=== PATIENT | female | born 1930 | race Caucasian/White ===

== ENCOUNTER → 2021-07-04 | Outpatient (CLI) | payer MEDICARE, OTHER ==
--- NOTE | 2021-07-04 12:22 | RAD ---
XR BILAT FEET 3 VIEWS Clinical Indication: Reason: BILATERAL FOOT PAIN, NKI, VASCULAR ISSUES / Spl. Instructions: / Histor y: Comparison: None. Findings: Right: There are coarse calcifications of the soft tissues of the plantar foot and the distal posterior calf . There is a surgical clip of the posterior calf. There is pes planus. There is diffuse demineralizat ion. No acute fracture is seen. Joint spaces are relatively maintained. Left: Diffuse demineralization. Mild narrowing of the first and fifth MTP joints. There are coarse calcific ations of the proximal plantar foot and the distal posterior calf. There is dorsal soft tissue swelli ng overlying the metatarsals. No acute fracture is identified. IMPRESSION: 1. No acute fracture. 2. Right pes planus. 3. Coarse calcifications in the soft tissues. Electronically signed by: Aric Cortes MD (07/04/2021 12:20 PM) [id number]
== END ==
LOC: RAD 09:57
PROVIDERS: ATTEND Podiatrist Foot & Ankle Surgery
DX: M21.41 Flat foot [pes planus] (acquired), right foot (principal); M79.89 Other specified soft tissue disorders; M25.872 Other specified joint disorders, left ankle and foot; M25.871 Other specified joint disorders, right ankle and foot; I73.9 Peripheral vascular disease, unspecified
CPT/HCPCS: 73630-50

== ENCOUNTER → 2021-07-10 | Outpatient (CLI) | payer MEDICARE, OTHER ==
--- NOTE | 2021-07-10 10:03 | RAD ---
EXAM: Bilateral lower extremity arterial Doppler sonogram. HISTORY: Peripheral vascular disease. Pain. Stroke. Atherosclerosis. TECHNIQUE: Warren scale and color Doppler sonographic evaluation of the bilateral lower artery veins wi th spectral waveform analysis was performed. FINDINGS: Right lower extremity: There is atherosclerotic plaque throughout the visualized right lower extremit y arteries. There is an abnormal monophasic waveform with severely elevated peak systolic velocity of 555 cm/s within the right popliteal artery. There are normal peak systolic velocities and biphasic a nd triphasic waveforms within the right lower extremity arteries proximal to this level and within th e proximal posterior tibial artery, anterior tibial artery and dorsalis pedis artery. The right dista l posterior tibial artery and peroneal artery are not seen. Left lower extremity: There is atherosclerotic plaque throughout the visualized left lower extremity arteries. There is an elevated peak systolic velocity within the left common femoral artery, measurin g 295 cm/s. There are biphasic waveforms and normal peak systolic velocities throughout the remainder of the left lower extremity arteries. IMPRESSION: 1. Nonvisualization of the right distal posterior tibial and peroneal arteries. This may be due to oc clusion. 2. Severe stenosis with associated abnormal waveform within the right popliteal artery. 3. Severe stenosis within the left common femoral artery 4. Atherosclerotic plaque throughout the lower extremity arteries. 5. Note is made that reported lower extremity arterial stents are not clearly seen sonographically. Electronically signed by: Yanely Murguia MD (07/10/2021 10:00 AM) [id number]
== END ==
LOC: US 08:41
PROVIDERS: ATTEND Podiatrist Foot & Ankle Surgery
DX: I70.223 Atherosclerosis of native arteries of extremities with rest pain, bilateral legs (principal); I70.8 Atherosclerosis of other arteries; B35.1 Tinea unguium; M79.671 Pain in right foot; M79.672 Pain in left foot
CPT/HCPCS: 93925

== ENCOUNTER 2021-08-13 14:52 | Inpatient (IN) | payer MEDICARE, OTHER ==
[~2021-08-13] VITALS: Ht 152.4 cm; Wt 69.8 kg
[2021-08-13] MEDS ORDERED: DEXAMETHASONE SOD PHOS 10 MG/ML VIAL. IVP ONE (15:15)
[2021-08-13] MEDS ORDERED: IPRATRPIUM/ALBUTEROL 0.5/2.5MG 3 ML NEBU. NEB ONE (15:15)
--- NOTE | 2021-08-13 15:19 | PHYS DOC ---
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), Depression, Hypertension, Hepatitis (See) Additional Past Medical Histor: Chronic hypotension, MS, mild cognitive impairment Past Medical History Limited secondary to patient's baseline mentation/altered mental status Past Surgical History: Coronary Bypass Surgery Additional Past Surgical Histo: Prosthetic heart valve Past Surgical History Limited secondary to patient's baseline mentation/altered mental status Smoking: Non-smoker Alcohol Use: None Drug Use: None Social History Limited secondary to patient's baseline mentation/altered mental status General Adult EDM: Chief Complaint: SHORTNESS OF BREATH HPI: HPI: 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 Pt was brought from [place] for increased SOB and confusion. Pt states she is not in any pain, does not feel ill, and is breathing at her baseline. Patient does have some baseline cognitive decline. Nursing rental representative reports over the past few days her mentation has decreased from baseline. Patient also has had some increased shortness of breath and has been requiring to wear her oxygen more often. Patient typically only wears 1 to 2 L via nasal cannula at night if needed. There is concern that patient may have a urinary tract infection as that happens frequently with this patient. History of present illness limited secondary to altered mental status/baseline mentation. Review of Systems: Review of Systems: Constitutional: Denies fever Respiratory: Reports cough and shortness of breath Cardiovascular: Denies chest pain GI: Denies abdominal pain, nausea, or vomiting Integument: Denies rash Neurologic: Denies headache; reports increased confusion Review of systems limited secondary to altered mental status/baseline cognitive impairment Current Medications: Current Meds: Current Medications Medications (Trade) Dose Ordered Sig/Azeem Start Time Stop Time Status Last Admin Dose Admin Albuterol/ Ipratropium (Duoneb) 3 ml 1X ONCE 08/13/21 15:15 08/13/21 15:16 UNV Dexamethasone Sodium Phosphate (Decadron) 10 mg 1X ONCE 08/13/21 15:15 08/13/21 15:16 UNV Allergies: Allergies: Allergies Coded Allergies Type Severity Reaction Last Updated Verified Penicillins Allergy Unknown 08/13/21 Yes captopril Allergy Unknown 08/13/21 Yes propranolol Allergy Unknown 08/13/21 Yes solifenacin Allergy Unknown 08/13/21 Yes Physical Exam: PE: Constitutional: Elderly, no acute distress, non-toxic appearance HENT: Normocephalic, atraumatic Eyes: PERRL, EOMI, conjunctiva normal, no discharge, no nystagmus Neck: Normal range of motion, supple Lungs & Thorax: No respiratory distress,increased work of breathing, tachypneic, rales noted at bases Cardiovascular: RRR Abdomen: Soft, no tenderness Skin: Warm, dry, no erythema, no rash Extremities: No tenderness, ROM intact, 2+ BLE edema Neurologic: Alert and oriented X name and place, LUE/LLE flaccidity from previous stroke Psychologic: Affect normal, judgment abnormal EKG: EKG: @1606 sinus rhythm at 87bpm occasional PVC No STEMI Slight ST depression I and aVL T wave inversions noted to I, aVL, and V4-V6 QRS 134ms QT/QTc 418/504ms @1801 NSR at 92bpm, NO ST elevation, t wave inversions I, aVL, V4-V6, Q wave in III, QRS 128ms, QT/QTc 398/498ms Radiology/Procedures: Radiology/Procedures: PROCEDURE: CHEST AP ONLY XR CHEST 1V History: Reason: dyspnea / Spl. Instructions: / History: Comparison: None. Findings: Diffuse interstitial thickening. Small bilateral pleural effusions. Enlarged cardiac size. No pneumothorax. Prior median sternotomy. Atheromatous plaque within the aorta. Impression: 1. Mild diffuse interstitial thickening, may represent pulmonary edema. 2. Small bilateral pleural effusions, right greater than left. Electronically signed by: Nelson Pacheco DO (08/13/2021 3:52 PM) [facility] PROCED[facility]: CT HEAD WO CONTRAST CT HEAD/BRAIN WO History: Altered mental status. Comparison: MRI brain 11/06/2020 Technique: Noncontrast CT imaging was performed of the head. Findings: No intracranial hemorrhage. No mass effect. No hydrocephalus. No evidence of acute territorial infarction. Moderate diffuse prominence of the ventricles and sulci consistent with involutional change. Patchy hypointensity of the periventricular and deep white matter consistent with chronic microvascular ischemic change. Bilateral lens replacements. The orbits are otherwise unremarkable. Imaged paranasal sinuses and mastoid air cells are clear. The scalp and calvarium are unremarkable. Impression: 1. No acute intracranial abnormality. Senescent changes of the brain. ----- Exposure: One or more of the following individualized dose reduction techniques were utilized for this examination: 1. Automated exposure control 2. Adjustment of the mA and/or kV according to patient size 3. Use of iterative reconstruction technique. Electronically signed by: Nahun Waller MD (08/13/2021 3:38 PM) [facility] Heart Score: C/O Chest Pain: N/A Course & Med Decision Making: Course & Med Decision Making Pertinent Labs and Imaging studies reviewed. (See chart for details) Pt is an 89 yo F who presents for increased SOB and confusion over the past few days. Patient has baseline cognitive impairment. Patient also has extensive cardiac history. EKG with some ST depression without signs of elevation. Chest x-ray with signs of increased vascular congestion. CT head without acute process. Labs obtained and posted to chart. WBC and lactic acid within normal limits. BNP greater than 5000. Initial troponin within normal limits. Lasix and aspirin provided. UA with positive nitrites. Rocephin initiated. Patient does have a history of chronic hypotension for which she is on midodrine. Midodrine therefore provided. Patient requiring admission for further evaluation and treatment. Discussed with Dr. De Luna (hospitalist) who is in agreement with admission. Discussed findings and plan with patient and Mother house rental representative, who acknowledge understanding and agreement. Jose Disclaimer: Jose Disclaimer: This electronic medical record was generated, in whole or in part, using a voice recognition dictation system. Departure Departure: Impression: Primary Impression: Acute exacerbation of CHF (congestive heart failure) Qualified Codes: I50.9 - Heart failure, unspecified Additional Impressions: Altered mental status Qualified Codes: R41.82 - Altered mental status, unspecified Urinary tract infection Qualified Codes: N30.00 - Acute cystitis without hematuria Disposition: ADMITTED INPATIENT Admitting Physician: Jean De Luna Condition: STABLE Referrals: HEATHER MANUEL DPM (PCP) BERT TORRES DO Aug 13, 2021 15:19
[2021-08-13] MEDS ORDERED: ONDANSETRON PF 4 MG/2 ML VIAL. IVP ONE (15:30)
--- NOTE | 2021-08-13 15:40 | RAD ---
CT HEAD/BRAIN WO History: Altered mental status. Comparison: MRI brain 11/06/2020 Technique: Noncontrast CT imaging was performed of the head. Findings: No intracranial hemorrhage. No mass effect. No hydrocephalus. No evidence of acute territorial infar ction. Moderate diffuse prominence of the ventricles and sulci consistent with involutional change. P atchy hypointensity of the periventricular and deep white matter consistent with chronic microvascula r ischemic change. Bilateral lens replacements. The orbits are otherwise unremarkable. Imaged paranasal sinuses and mast oid air cells are clear. The scalp and calvarium are unremarkable. Impression: 1. No acute intracranial abnormality. Senescent changes of the brain. ----- Exposure: One or more of the following individualized dose reduction techniques were utilized for thi s examination: 1. Automated exposure control 2. Adjustment of the mA and/or kV according to patient size 3. Use of iterative reconstruction technique. Electronically signed by: Nahun Waller MD (08/13/2021 3:38 PM) [facility]
--- NOTE | 2021-08-13 15:54 | RAD ---
XR CHEST 1V History: Reason: dyspnea / Spl. Instructions: / History: Comparison: None. Findings: Diffuse interstitial thickening. Small bilateral pleural effusions. Enlarged cardiac size. No pneumot horax. Prior median sternotomy. Atheromatous plaque within the aorta. Impression: 1. Mild diffuse interstitial thickening, may represent pulmonary edema. 2. Small bilateral pleural effusions, right greater than left. Electronically signed by: Nelson Pacheco DO (08/13/2021 3:52 PM) [facility]
[2021-08-13 16:15] LABS: BASO # 0.1 x10^3/uL (0.0-0.2); BASO % 1 % (0-3); EOS % 0 % (0-3); HEMOGLOBIN 9.9 g/dL (12.0-15.5); LYMPH # 0.7 x10^3/uL (1.0-4.8); LYMPH % 6 % (24-48); MEAN CORPUSCULAR HEMOGLOBIN 23 pg (25-35); MEAN CORPUSCULAR HGB CONC 31 g/dL (31-37); MEAN CORPUSCULAR VOLUME 75 fL (79-100); MONO # 1.6 x10^3/uL (0.0-1.1); MONO % 15 % (0-9); NEUT # 8.1 x10^3uL (1.8-7.7); NEUT % 78 % (31-73); PLATELET COUNT 110 x10^3/uL (140-400); RED BLOOD COUNT 4.29 x10^6/uL (3.50-5.40); RED CELL DISTRIBUTION WIDTH 18.5 % (11.5-14.5); WHITE BLOOD COUNT 10.4 x10^3/uL (4.0-11.0)
[2021-08-13 16:26] LABS: CALCIUM 9.3 mg/dL (8.5-10.1); CREATININE 0.7 mg/dL (0.6-1.0); POTASSIUM 3.9 mmol/L (3.5-5.1)
[2021-08-13 16:42] LABS: INFLUENZA A PATIENT NEGATIVE (NEGATIVE); INFLUENZA B PATIENT NEGATIVE (NEGATIVE)
[2021-08-13 16:43] LABS: ALBUMIN 3.5 g/dL (3.4-5.0); ALBUMIN/GLOBULIN RATIO 1.3 (1.0-1.7); MAGNESIUM 1.7 mg/dL (1.8-2.4); TOTAL BILIRUBIN 0.7 mg/dL (0.2-1.0); TOTAL PROTEIN 6.3 g/dL (6.4-8.2)
[2021-08-13 17:32] LABS: BACTERIA,URINE FEW /HPF (0-FEW); CLARITY,URINE CLEAR; COLOR,URINE AMBER; GLUCOSE,URINE NEG (NEG); NITRITE,URINE POS (NEG); SQUAMOUS EPITHELIAL CELL,UR FEW /LPF; UROBILINOGEN,URINE 0.2 mg/dL (0.2 mg/dL)
[2021-08-13] MEDS ORDERED: MIDODRINE 2.5 MG TABLET PO ONE (18:00)
[2021-08-13] MEDS ORDERED: ASPIRIN ENTERIC COATED 325 MG TABLET.DR. PO ONE (18:00)
[2021-08-13] MEDS ORDERED: FUROSEMIDE 40 MG/4 ML VIAL IVP ONE (18:00)
[2021-08-13] MEDS ORDERED: IV NORMAL SALINE 50ML 50 ML ONE (18:02)
[2021-08-13] MEDS ORDERED: cefTRIAXone SODIUM 1 GM VIAL ONE (18:02)
[2021-08-13] MEDS ORDERED: ONDANSETRON PF 4 MG/2 ML VIAL. IVP PRN (18:15)
[2021-08-13 20:30] VITALS: BP 90/74
[2021-08-13] MEDS ORDERED: MAGN400O7 PO (22:38)
[2021-08-13] MEDS ORDERED: METO-239 PO (22:38)
[2021-08-13] MEDS ORDERED: CALC300T5 PO (22:38)
[2021-08-13] MEDS ORDERED: SENN1TAB99 PO (22:38)
[2021-08-13] MEDS ORDERED: ESCITALOPRAM OXA5 MG PO (22:38)
[2021-08-13] MEDS ORDERED: MIDO2.5T PO (22:38)
[2021-08-13] MEDS ORDERED: ASPI-630 PO (22:38)
[2021-08-13] MEDS ORDERED: ATOR40TA59 PO (22:38)
[2021-08-13] MEDS ORDERED: NITR0.4T22 SL (22:38)
[2021-08-13] MEDS ORDERED: RANO500T2 PO (22:38)
[2021-08-13] MEDS ORDERED: ACET325T21 PO (22:38)
[2021-08-13] MEDS ORDERED: CLOP75TA PO (22:38)
--- NOTE | 2021-08-13 23:01 | NUR ---
PT ADMITTED TO 124 VIA EMS ACCOMPANIED BY ER STAFF. PT AOX2 W/ CONFUSION. VS OBTAINED. PT IS NOW RESTING COMFORTABLY W/ CALL LIGHT IN REACH.
[2021-08-13 23:15] VITALS: BP 93/69
--- NOTE | 2021-08-14 00:31 | EKG ---
[address] [address] Test Date: 2021-08-13 Test Time: 18:01:56 Pat Name: MIRELLA SCHNEIDER Department: Room: 124 A Gender: F Weekend Anchor: : 1930 Requested By: BERT TORRES Order Number: [id number] Reading MD: Dandy Brasher Measurements Intervals [place] Rate: 92 P: 0 [place]: 114 QRS: -10 QRSD: 128 T: 182 QT: 398 QTc: 498 Interpretive Statements SINUS RHYTHM VENTRICULAR PREMATURE COMPLEX(ES) LEFTWARD AXIS LEFT BUNDLE BRANCH BLOCK ABNORMAL ECG RI6.02 No previous ECG available for comparison Electronically Signed On 08-15-2021 18:17:04 CDT by Dandy Barsher
--- NOTE | 2021-08-14 00:32 | EKG ---
[address] [address] Test Date: 2021-08-13 Test Time: 16:06:23 Pat Name: MIRELLA SCHNEIDER Department: Room: 124 A Gender: F Sleever: : 1930 Requested By: BERT TORRES Order Number: [id number] Reading MD: Dandy Brasher Measurements Intervals [place] Rate: 87 P: 21 [place]: 114 QRS: 6 QRSD: 134 T: 196 QT: 418 QTc: 504 Interpretive Statements SINUS RHYTHM VENTRICULAR PREMATURE COMPLEX(ES) ATRIAL PREMATURE COMPLEX(ES) QRS(T) CONTOUR ABNORMALITY CONSISTENT WITH INFERIOR INFARCT AGE UNDETERMINED Electronically Signed On 08-15-2021 18:18:12 CDT by Dandy Brasher
[2021-08-14 06:02] VITALS: BP 89/65
[2021-08-14] MEDS ORDERED: NITROGLYCERIN SUBLINGUAL 0.4 MG BOTTLE OF 25. SL PRN (10:00)
[2021-08-14] MEDS ORDERED: MAGNESIUM HYDROXIDE 2,400 MG/30 ML ORAL.SUSP. PO PRN (10:00)
[2021-08-14] MEDS ORDERED: CALCIUM CARBONATE 500 MG TAB.CHEW PO PRN (10:30)
[2021-08-14] MEDS: SENNOSIDES/DOCUSATE 8.6/50MG TABLET. PO SCH (10:30)
--- NOTE | 2021-08-14 10:36 | HP ---
DATE OF SERVICE: 08/14/2021 ADMIT DATE: 08/13/2021 ATTENDING PHYSICIAN: Dr. De Luna. CHIEF COMPLAINT: Confusion and shortness of breath. 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 She presented to the ED with increasing shortness of breath and confusion. Workup there demonstrated congestive heart failure with vascular congestion and small bilateral pleural effusions. She also had evidence of a UTI. Cultures are pending. She was given supplemental oxygen, Lasix and started on antibiotics. She is admitted to the inpatient service. She is a DNR per advanced directive. She has underlying dementia. Her history is reviewed from the chart. ALLERGIES: SHE HAS ALLERGIES TO PENICILLIN, CAPTOPRIL, PROPRANOLOL, and SOLIFENACIN, exact reactions unclear. PAST MEDICAL HISTORY: Includes angina pectoris; arteriosclerotic heart disease; hypertension; wedge compression with compression fracture; multiple sclerosis; pain in the knee; previous bypass and graft of the heart; presence of prosthetic heart valve, exact type is unclear; hyperlipidemia; chronic viral hepatitis; thrombocytopenia; chronic anticoagulation; lumbar spinal stenosis; constipation; hemiplegia; old stroke; nonrheumatic mitral valve insufficiency; cardiomyopathy and cognitive disorder. CURRENT MEDICATIONS: Reviewed. She was on scheduled aspirin, Lipitor, Plavix, Lexapro, midodrine, Ranexa, and senna. SOCIAL HISTORY: She is a nonsmoker and nondrinker. FAMILY HISTORY: Unobtainable. REVIEW OF SYSTEMS: Unobtainable. PHYSICAL EXAMINATION: GENERAL: When I saw her, this is a pleasant, confused, elderly female. VITAL SIGNS: Her initial vital signs showed a blood pressure 90/74, pulse is 90 and regular. She was afebrile. Oxygen saturation 97% on room air. HEENT: Head is without trauma. Pupils are reactive. Sclerae nonicteric. Oropharynx clear. NECK: Supple. No bruits. LUNGS: Shallow respirations with crackles at the bases. CARDIOVASCULAR: Showed distant heart tones. Normal S1, S2. Soft grade II systolic murmur at the left sternal border. Peripheral pulses are palpable and full. ABDOMEN: Soft. EXTREMITIES: Without edema. NEUROLOGIC: Function focally intact, bit confused. PERTINENT LABORATORIES AND X-RAY STUDIES: Chest x-ray on admission showed vascular congestion and small bilateral pleural effusions. Cultures of urine have been sent and are pending. CBC and chemistry panel have been drawn. Her hemoglobin is 9.9 g/dL, white count 10,400. Cardiac enzymes negative for coronary ischemia. Electrolytes within normal range. Creatinine 0.7 mg%. Nonfasting blood sugar 122 mg/dL. BNP was 5000. ASSESSMENT: 1. 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 2. Urinary tract infections. 3. Altered mentation due to urinary tract infection. 4. Coronary artery disease. 5. Valvular heart disease. 6. Generalized debilitation. 7. Dementia. PLAN: 1. Admit to the inpatient unit. 2. Diuresis. 3. Serial chemistries. 4. Antibiotics as ordered. 5. Await urine cultures. 6. Home meds continued. 7. She is a DNR per advanced directive. DIGNA/GUY DR: DIGNA/bernie TID: [id number]
[2021-08-14 10:50] VITALS: BP 137/58
[2021-08-14] MEDS: ASPIRIN CHEWABLE 81 MG TABLET. PO SCH (11:15)
[2021-08-14] MEDS: CLOPIDOGREL BISULFATE 75 MG TABLET PO SCH (11:16)
[2021-08-14] MEDS: MIDODRINE 2.5 MG TABLET PO SCH ×2 (14:19→20:45)
[2021-08-14 15:00] VITALS: BP 71/65
[2021-08-14] MEDS ORDERED: ACETAMINOPHEN 325 MG TABLET PO ONE (18:15)
[2021-08-14 20:25] VITALS: BP 60/49
[2021-08-14] MEDS: RANOLAZINE 500 MG TAB.ER.12H PO SCH (20:46)
[2021-08-14] MEDS: ATORVASTATIN CALCIUM 20 MG TABLET PO SCH (20:46)
[2021-08-14 23:58] VITALS: BP 121/79
[2021-08-15 05:53] VITALS: BP 75/57
[2021-08-15 07:25] LABS: BASO % 0 % (0-3); EOS % 0 % (0-3); HEMATOCRIT 28.9 % (36.0-47.0); HEMOGLOBIN 9.1 g/dL (12.0-15.5); LYMPH # 0.8 x10^3/uL (1.0-4.8); LYMPH % 9 % (24-48); MEAN CORPUSCULAR HEMOGLOBIN 23 pg (25-35); MEAN CORPUSCULAR HGB CONC 32 g/dL (31-37); MEAN CORPUSCULAR VOLUME 74 fL (79-100); MONO # 1.1 x10^3/uL (0.0-1.1); MONO % 12 % (0-9); NEUT # 7.3 x10^3uL (1.8-7.7); NEUT % 79 % (31-73); PLATELET COUNT 140 x10^3/uL (140-400); RED BLOOD COUNT 3.91 x10^6/uL (3.50-5.40); WHITE BLOOD COUNT 9.3 x10^3/uL (4.0-11.0)
[2021-08-15 07:34] LABS: CALCIUM 8.9 mg/dL (8.5-10.1); CREATININE 0.7 mg/dL (0.6-1.0); POTASSIUM 3.8 mmol/L (3.5-5.1)
[2021-08-15 07:36] VITALS: BP 126/66
[2021-08-15] MEDS: MIDODRINE 2.5 MG TABLET PO SCH ×3 (07:43→20:27)
[2021-08-15] MEDS: CITALOPRAM 10 MG TABLET. PO SCH (07:44)
[2021-08-15] MEDS: RANOLAZINE 500 MG TAB.ER.12H PO SCH ×2 (07:44→20:27)
[2021-08-15] MEDS: CLOPIDOGREL BISULFATE 75 MG TABLET PO SCH (07:44)
[2021-08-15] MEDS: ASPIRIN CHEWABLE 81 MG TABLET. PO SCH (07:44)
[2021-08-15] MEDS: SENNOSIDES/DOCUSATE 8.6/50MG TABLET. PO SCH (07:46)
--- NOTE | 2021-08-15 08:52 | PDOC2 ---
UNIQUE HARVEY EFREN 08/15/21 0852: CARDIAC CONSULT DATE OF CONSULT DOS: DATE: 08/15/21 TIME: 08:46 REASON FOR CONSULT Reason for Consult CHF REFERRING PHYSICIAN Referring Physician Dr. Galvan SOURCE Source: Chart review, Patient HPI History of Present Illness This is an 89 yo female who presented secondary to shortness of breath and altered mental status. Has been short of breath for the last several days. Has progressively worsened. Facility staff also noticed decrease in mentations for the last couple of days. UA notable for UTI. CXY with evidence of CHF. Patient reports improvement in breathing following IV diuresis. She denies any dizziness, diaphoresis, palpitations, or nausea/vomiting. Report he "legs don't want to work" when the weather changes. Does have extensive cardiac history. 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 PAST MEDICAL HISTORY Cardiovascular: CAD, HTN, hyperipidemia, valve insufficiency CENTRAL NERVOUS SYSTEM: CVA, Dementia GI: GERD Psych: Anxiety, Depression Musculoskeletal: Osteoarthritis Renal/: Other (retention ) PAST SURGICAL HISTORY Past Surgical History: Other (bioprosthetic AVR) FAMILY HISTORY Family History: Family History Unknown SOCIAL HISTORY Smoke: No ALCOHOL: none Drugs: None Lives: Shelter ([facility] ) CURRENT MEDICATIONS Current Medications Current Medications Dexamethasone Sodium Phosphate (Decadron) 10 mg 1X ONCE IVP Last administered on 08/13/21at 16:01; Start 08/13/21 at 15:15; Stop 08/13/21 at 15:19; Status DC Albuterol/ Ipratropium (Duoneb) 3 ml 1X ONCE NEB Last administered on 08/13/21at 16:12; Start 08/13/21 at 15:15; Stop 08/13/21 at 15:19; Status DC Ondansetron HCl (Zofran) 4 mg 1X ONCE IVP Last administered on 08/13/21at 16:01; Start 08/13/21 at 15:30; Stop 08/13/21 at 15:31; Status DC Aspirin (Aspirin Enteric Coated) 325 mg 1X ONCE PO Last administered on 08/13/21at 18:16; Start 08/13/21 at 18:00; Stop 08/13/21 at 18:01; Status DC Ceftriaxone Sodium 1 gm/ Sodium Chloride 50 ml @ 100 mls/hr 1X ONCE IV Last administered on 08/13/21at 18:16; Start 08/13/21 at 18:00; Stop 08/13/21 at 18:29; Status DC Midodrine (Proamatine) 2.5 mg 1X ONCE PO Last administered on 08/13/21at 18:17; Start 08/13/21 at 18:00; Stop 08/13/21 at 18:01; Status DC Furosemide (Lasix) 80 mg 1X ONCE IVP Last administered on 08/13/21at 19:06; Start 08/13/21 at 18:00; Stop 08/13/21 at 18:01; Status DC Sodium Chloride 50 ml @ As Directed STK-MED ONCE .ROUTE ; Start 08/13/21 at 18:02; Stop 08/13/21 at 18:03; Status DC Ceftriaxone Sodium (Rocephin) 1 gm STK-MED ONCE .ROUTE ; Start 08/13/21 at 18:02; Stop 08/13/21 at 18:03; Status DC Ondansetron HCl (Zofran) 4 mg PRN Q4HRS PRN IVP NAUSEA/VOMITING; Start 08/13/21 at 18:15; Stop 08/14/21 at 18:14; Status DC Aspirin (Aspirin Chewable) 81 mg DAILY PO Last administered on 08/15/21at 07:44; Start 08/14/21 at 10:30 Clopidogrel Bisulfate (Plavix) 75 mg DAILY PO Last administered on 08/15/21at 07:44; Start 08/14/21 at 10:30 Magnesium Hydroxide (Milk Of Magnesia) 2,400 mg PRN Q12HR PRN PO CONSTIPATION; Start 08/14/21 at 10:00 Midodrine (Proamatine) 2.5 mg TID PO Last administered on 08/15/21at 07:43; Start 08/14/21 at 14:00 Nitroglycerin (Nitrostat) 0.4 mg PRN Q5MIN PRN SL CHEST PAIN; Start 08/14/21 at 10:00 Ranolazine (Ranexa) 500 mg BID PO Last administered on 08/15/21at 07:44; Start 08/14/21 at 21:00 Senna/Docusate Sodium (Senna Plus) 2 tab DAILY PO Last administered on 08/15/21at 07:46; Start 08/14/21 at 10:30 Atorvastatin Calcium (Lipitor) 40 mg QHS PO Last administered on 08/14/21at 20:46; Start 08/14/21 at 21:00 Calcium Carbonate/ Glycine (Tums) 500 mg PRN AFTMEALHC PRN PO INDIGESTION; Start 08/14/21 at 10:30 Citalopram Hydrobromide (CeleXA) 10 mg DAILY PO Last administered on 08/15/21at 07:44; Start 08/15/21 at 09:00 Ceftriaxone Sodium 1 gm/ Sodium Chloride 50 ml @ 100 mls/hr Q24H IV Last administered on 08/14/21at 20:45; Start 08/14/21 at 21:00 Acetaminophen (Tylenol) 650 mg 1X ONCE PO Last administered on 08/14/21at 18:16; Start 08/14/21 at 18:15; Stop 08/14/21 at 18:16; Status DC Active Scripts Active Reported Senna-Docusate Sodium Tablet (Sennosides/Docusate Sodium) 1 Each Tablet 2 Tab PO DAILY 5 Days Clopidogrel (Clopidogrel Bisulfate) 75 Mg Tablet 75 Mg PO DAILY Midodrine Hcl 2.5 Mg Tablet 2.5 Mg PO TID Ranexa (Ranolazine) 500 Mg Tab.er.12h 1 Tab PO BID 30 Days Aspirin 81 Mg Tab.chew 81 Mg PO DAILY Metoprolol Succinate ( Xl ) (Metoprolol Succinate) 25 Mg Tab.er.24h 1 Tab PO PRN PRN Escitalopram Oxalate 5 Mg Tablet 5 Mg PO DAILY Atorvastatin Calcium 40 Mg Tablet 40 Mg PO QHS Acetaminophen 325 Mg Tablet 2 Tab PO PRN Q4-6HRS PRN 24 Days NITROGLYCERIN SubLingual (Nitroglycerin) 0.4 Mg Tab.subl 0.4 Mg SL PRN Q5MIN PRN Tums (Calcium Carbonate) 300 Mg Tab.chew 500 Mg PO PRN TID PRN Milk Of Magnesia (Magnesium Hydroxide) 400 Mg/5 Ml Oral.susp 400 Mg PO PRN Q12HR PRN ALLERGIES Allergies: Coded Allergies: Penicillins (Verified Allergy, Unknown, 08/13/21) captopril (Verified Allergy, Unknown, 08/13/21) propranolol (Verified Allergy, Unknown, 08/13/21) solifenacin (Verified Allergy, Unknown, 4/18/22) ROS Review of Systems 14 point ROS conducted with pertinent positives noted above in HPI PHYSICAL EXAM General: Alert, Oriented X3, Cooperative, No acute distress, Other HEENT: Atraumatic Lungs: Other (diminished bases) Heart: Regular rate Abdomen: Soft Extremities: Other (trace bilateral LE edema ) Skin: No breakdown Neuro: Normal speech, Sensation intact Psych/Mental Status: Mood NL, Other (forgetful ) MUSCULOSKELETAL: Osteoarthritic changes both hands VITALS Vital Signs Vital Signs Date Time Temp Pulse Resp B/P (MAP) Pulse Ox O2 Delivery O2 Flow Rate FiO2 08/15/21 07:44 100 126/66 08/15/21 05:53 97.4 18 94 Nasal Cannula 2.0 08/13/21 16:10 0.21 LABS LABS Laboratory Tests Test 08/13/21 15:50 08/13/21 15:53 08/13/21 16:31 08/13/21 19:26 White Blood Count 10.4 x10^3/uL (4.0-11.0) Red Blood Count 4.29 x10^6/uL (3.50-5.40) Hemoglobin 9.9 g/dL (12.0-15.5) Hematocrit 32.0 % (36.0-47.0) Mean Corpuscular Volume 75 fL (79-100) Mean Corpuscular Hemoglobin 23 pg (25-35) Mean Corpuscular Hemoglobin Concent 31 g/dL (31-37) Red Cell Distribution Width 18.5 % (11.5-14.5) Platelet Count 110 x10^3/uL (140-400) Neutrophils (%) (Auto) 78 % (31-73) Lymphocytes (%) (Auto) 6 % (24-48) Monocytes (%) (Auto) 15 % (0-9) Eosinophils (%) (Auto) 0 % (0-3) Basophils (%) (Auto) 1 % (0-3) Neutrophils # (Auto) 8.1 x10^3uL (1.8-7.7) Lymphocytes # (Auto) 0.7 x10^3/uL (1.0-4.8) Monocytes # (Auto) 1.6 x10^3/uL (0.0-1.1) Eosinophils # (Auto) 0.0 x10^3/uL (0.0-0.7) Basophils # (Auto) 0.1 x10^3/uL (0.0-0.2) Sodium Level 134 mmol/L (136-145) Potassium Level 3.9 mmol/L (3.5-5.1) Chloride Level 100 mmol/L (98-107) Carbon Dioxide Level 27 mmol/L (21-32) Anion Gap 7 (6-14) Blood Urea Nitrogen 18 mg/dL (7-20) Creatinine 0.7 mg/dL (0.6-1.0) Estimated GFR (Cockcroft-Gault) 79.0 BUN/Creatinine Ratio 26 (6-20) Glucose Level 122 mg/dL (70-99) Lactic Acid Level 1.3 mmol/L (0.4-2.0) Calcium Level 9.3 mg/dL (8.5-10.1) Magnesium Level 1.7 mg/dL (1.8-2.4) Total Bilirubin 0.7 mg/dL (0.2-1.0) Aspartate Amino Transf (AST/SGOT) 14 U/L (15-37) Alanine Aminotransferase (ALT/SGPT) 11 U/L (14-59) Alkaline Phosphatase 57 U/L (46-116) Ammonia < 10 mcmol/L (11-34) Creatine Kinase 38 U/L (26-192) Creatine Kinase MB (Mass) 1.1 ng/mL (0.0-3.6) Creatine Kinase MB Relative Index 2.9 % (0-4) Troponin I High Sensitivity 41 ng/L (4-50) 38 ng/L (4-50) HV-Wvu-A-Type Natriuretic Peptide 5089 pg/mL (0-449) Total Protein 6.3 g/dL (6.4-8.2) Albumin 3.5 g/dL (3.4-5.0) Albumin/Globulin Ratio 1.3 (1.0-1.7) Coronavirus (COVID-19)(PCR) Not detected (NOT DETECTD) Influenza Type A (Rapid) Negative (NEGATIVE) Influenza Type B (Rapid) Negative (NEGATIVE) SARS-CoV-2 Antigen (Rapid) Negative (NEGATIVE) Urine Collection Type Clean catch Urine Color Mary [place] Urine Clarity Clear Urine pH 5.5 Urine Specific [place] >=1.030 Urine Protein 100 mg/dl (NEG-TRACE) Urine Glucose (UA) Neg mg/dL (NEG) Urine Ketones (Stick) Trace mg/dL (NEG) Urine Blood Neg (NEG) Urine Nitrite Pos (NEG) Urine Bilirubin Small (NEG) Urine Urobilinogen Dipstick 0.2 mg/dL (0.2 mg/dL) Urine Leukocyte Esterase Neg (NEG) Urine RBC 6-10 /HPF (0-2) Urine WBC 11-20 /HPF (0-4) Urine Squamous Epithelial Cells Few /LPF Urine Bacteria Few /HPF (0-FEW) Test 08/13/21 21:50 08/15/21 06:00 Troponin I High Sensitivity 40 ng/L (4-50) White Blood Count 9.3 x10^3/uL (4.0-11.0) Red Blood Count 3.91 x10^6/uL (3.50-5.40) Hemoglobin 9.1 g/dL (12.0-15.5) Hematocrit 28.9 % (36.0-47.0) Mean Corpuscular Volume 74 fL (79-100) Mean Corpuscular Hemoglobin 23 pg (25-35) Mean Corpuscular Hemoglobin Concent 32 g/dL (31-37) Red Cell Distribution Width 19.0 % (11.5-14.5) Platelet Count 140 x10^3/uL (140-400) Neutrophils (%) (Auto) 79 % (31-73) Lymphocytes (%) (Auto) 9 % (24-48) Monocytes (%) (Auto) 12 % (0-9) Eosinophils (%) (Auto) 0 % (0-3) Basophils (%) (Auto) 0 % (0-3) Neutrophils # (Auto) 7.3 x10^3uL (1.8-7.7) Lymphocytes # (Auto) 0.8 x10^3/uL (1.0-4.8) Monocytes # (Auto) 1.1 x10^3/uL (0.0-1.1) Eosinophils # (Auto) 0.0 x10^3/uL (0.0-0.7) Basophils # (Auto) 0.0 x10^3/uL (0.0-0.2) Sodium Level 139 mmol/L (136-145) Potassium Level 3.8 mmol/L (3.5-5.1) Chloride Level 103 mmol/L (98-107) Carbon Dioxide Level 29 mmol/L (21-32) Anion Gap 7 (6-14) Blood Urea Nitrogen 26 mg/dL (7-20) Creatinine 0.7 mg/dL (0.6-1.0) Estimated GFR (Cockcroft-Gault) 79.0 Glucose Level 96 mg/dL (70-99) Calcium Level 8.9 mg/dL (8.5-10.1) ASSESSMENT/PLAN Assessment/Plan 1. Acute on chronic CHF with possible diastolic dysfunction. improved s/p IV Lasix 2. Encephalopathy in the setting of UTI. Also underlying dementia 3. CAD s/p remote CABG. [facility] 4. Aortic stenosis s/p remote bioprosthetic AVR 5. Hypotension; on midodrine 6. Hyperlipidemia; statin 7. Anemia, thrombocytopenia 8. Arrhyhtmia; tele note with brief burst of probable SVT with aberrancy Recommendations Mild diuresis with monitoring of renal function Check Mg, TSH Unable to start BB due to hypotension Increase midodrine to 5mg Continue secondary prevention Monitor PLTs. Ongoing treatment of UTI Supportive care NAN CASAREZ MD 08/17/21 1302: CARDIAC CONSULT ASSESSMENT/PLAN Assessment/Plan Late entry for 08/15/2021 Patient seen and examined. Agree with above nurse practitioner note UNIQUE HARVEY APRN Aug 15, 2021 08:52 NAN CASAREZ MD Aug 17, 2021 13:02
[2021-08-15] MEDS ORDERED: ACETAMINOPHEN 325 MG TABLET PO PRN (09:00)
[2021-08-15 12:15] VITALS: BP 121/78
[2021-08-15 15:53] VITALS: BP 141/73
--- NOTE | 2021-08-15 16:05 | RAD ---
INDICATION: Reason: LUE more swollen than LUE / Spl. Instructions: / History: COMPARISON: None. TECHNIQUE: Grayscale, color and doppler ultrasound images were obtained of the left upper extremity v enous vasculature. No thrombus identified in the internal jugular, subclavian, axillary, brachial, basilic, cephalic, r adial or ulnar veins. IMPRESSION: * No thrombus identified in deep venous system of left upper extremity. Electronically signed by: Marquis Bateman MD (08/15/2021 4:02 PM) [id number]
[2021-08-15] MEDS ORDERED: POTASSIUM CHLORIDE 20 MEQ TABLET.ER. PO ONE (16:15)
[2021-08-15] MEDS ORDERED: FUROSEMIDE 40 MG/4 ML VIAL IVP ONE (16:15)
[2021-08-15 19:22] VITALS: BP 132/70
[2021-08-15] MEDS: ATORVASTATIN CALCIUM 20 MG TABLET PO SCH (20:27)
[2021-08-15] MEDS: LACTOBACILLUS RHAMNOSUS GG 1 CAPSULE. PO SCH (20:27)
[2021-08-15 23:32] VITALS: BP 115/76
--- NOTE | 2021-08-16 02:49 | PN ---
DATE: 08/15/2021 SUBJECTIVE: The patient is resting, slightly propped up in bed, in no apparent distress. She is confused, apparently known to have dementia, has had right middle cerebral artery territory infarct, left sided hemiplegia. PHYSICAL EXAMINATION: GENERAL: When I examined her, she looked pale, not jaundiced, no lymphadenopathy, no thyromegaly, no jugular venous distention. No limb edema. VITAL SIGNS: Her heart rate was 83, blood pressure is 121/78, temperature 97, respiratory rate was 18 and oxygen saturation was 97% on 2 liters of oxygen by nasal cannula. HEAD, EYES, EARS, NOSE, AND THROAT: Normocephalic, atraumatic. NECK: Supple. HEART: Showed normal first and second heart sounds. No gallop or murmur. CHEST: Shows central trachea, equal bilateral expansion, air entry. I could not appreciate any crepitation or rhonchi anteriorly. Posteriorly, she has a dull percussion noted and absent breath sounds on the right side posteriorly. ABDOMEN: Soft, nontender. NEUROLOGIC: She is confused; however, all her cranial nerves seem to be grossly intact. She has left-sided hemiparesis. According to nursing staff at [facility], she is a 2-person assist. She sometimes manages to wheel herself using her normal foot, but she is very confused and carries a diagnosis of dementia. Her intake over the last 24 hours was incompletely recorded, output was 2400. LABORATORY DATA: Showed a white cell count 9.3, hemoglobin 9.1, hematocrit 29, MCV 74 and platelet count of 140,000 with normal manual differential. Her serum sodium today was 139, potassium 3.8, chloride 103, bicarbonate 29, anion gap of 7, BUN 26, creatinine 0.7. Estimated GFR was 79 mL per minute. Her glucose was 96 and calcium was 8.9. She has 3 sets of cardiac enzymes to rule out acute myocardial infarction. ASSESSMENT: In summary, this is an 89-year-old female patient with: 1. Acute on chronic congestive heart failure, likely diastolic, improved on IV Lasix. 2. Encephalopathy with underlying dementia. Her urine cultures are so far negative. 3. Coronary artery disease, status post remote coronary artery bypass graft surgery. 4. Aortic stenosis, status post remote bioprosthetic aortic valve replacement. 5. Hypertension, on midodrine. 6. Hyperlipidemia. 7. Anemia and thrombocytopenia. Her platelets actually improved to 140,000. 8. Arrhythmia. PLAN: To continue with all her current medications. I will repeat her labs and chest x-ray tomorrow and check her urine culture. Meanwhile, we will continue with all her current medications including ceftriaxone. NUNU/MARLEN DR: Bishop TID: [id number]
[2021-08-16 05:31] VITALS: BP 140/81
[2021-08-16 06:15] LABS: BASO # 0.1 x10^3/uL (0.0-0.2); BASO % 1 % (0-3); EOS % 0 % (0-3); HEMATOCRIT 28.4 % (36.0-47.0); HEMOGLOBIN 8.9 g/dL (12.0-15.5); LYMPH # 1.3 x10^3/uL (1.0-4.8); LYMPH % 22 % (24-48); MEAN CORPUSCULAR HEMOGLOBIN 23 pg (25-35); MEAN CORPUSCULAR HGB CONC 31 g/dL (31-37); MEAN CORPUSCULAR VOLUME 74 fL (79-100); MONO # 0.8 x10^3/uL (0.0-1.1); MONO % 14 % (0-9); NEUT # 3.8 x10^3uL (1.8-7.7); NEUT % 63 % (31-73); PLATELET COUNT 139 x10^3/uL (140-400); RED BLOOD COUNT 3.85 x10^6/uL (3.50-5.40); RED CELL DISTRIBUTION WIDTH 18.9 % (11.5-14.5); WHITE BLOOD COUNT 6.1 x10^3/uL (4.0-11.0)
[2021-08-16 06:36] LABS: ALBUMIN 2.9 g/dL (3.4-5.0); CALCIUM 8.8 mg/dL (8.5-10.1); CREATININE 0.7 mg/dL (0.6-1.0); POTASSIUM 3.6 mmol/L (3.5-5.1); TOTAL BILIRUBIN 0.4 mg/dL (0.2-1.0); TOTAL PROTEIN 5.7 g/dL (6.4-8.2)
--- NOTE | 2021-08-16 08:13 | RAD ---
EXAM: XR CHEST 1V 08/16/2021 7:49 AM CLINICAL INDICATION: Follow-up pleural effusion COMPARISON: Chest radiograph 08/13/2021 TECHNIQUE: AP upright view of the chest FINDINGS: The heart is enlarged. There are changes of median sternotomy and TAVR. There is an increa sed, [id number] right pleural effusion and right basilar opacities. Unchanged small left pleur al effusion. No pneumothorax. IMPRESSION: Cardiomegaly with bilateral pleural effusions, increased on the right. Electronically signed by: Shelley Valdes MD (08/16/2021 8:10 AM) [id number]
[2021-08-16] MEDS: SENNOSIDES/DOCUSATE 8.6/50MG TABLET. PO SCH (08:14)
[2021-08-16] MEDS: ASPIRIN CHEWABLE 81 MG TABLET. PO SCH (08:14)
[2021-08-16] MEDS: LACTOBACILLUS RHAMNOSUS GG 1 CAPSULE. PO SCH (08:14)
[2021-08-16] MEDS: CLOPIDOGREL BISULFATE 75 MG TABLET PO SCH (08:15)
[2021-08-16] MEDS ORDERED: MAGNESIUM SULFATE 2GM 50 ML IV ONE (08:15)
[2021-08-16] MEDS: CITALOPRAM 10 MG TABLET. PO SCH (08:15)
[2021-08-16] MEDS: RANOLAZINE 500 MG TAB.ER.12H PO SCH (08:15)
--- NOTE | 2021-08-16 08:18 | PDOC ---
CARDIO Progress Notes Date & Time Date of Service DATE: 08/16/21 TIME: 08:13 Time of Evaluation 08:13 Subjective Notes no chest pain. breathing improved Vitals Vitals Vital Signs Date Time Temp Pulse Resp B/P (MAP) Pulse Ox O2 Delivery O2 Flow Rate FiO2 08/16/21 05:31 97.4 93 20 140/81 (100) 93 Nasal Cannula 2.0 08/13/21 16:10 0.21 Weight Weight [ ] Input and Output I.O. Intake and Output 08/16/21 07:00 Intake Total 100 ml Output Total 2450 ml Balance -2350 ml Intake Oral 100 ml Output Urine Total 2450 ml Laboratory Labs Laboratory Tests Test 08/15/21 06:00 08/15/21 16:30 08/16/21 05:58 White Blood Count 9.3 x10^3/uL (4.0-11.0) 6.1 x10^3/uL (4.0-11.0) Red Blood Count 3.91 x10^6/uL (3.50-5.40) 3.85 x10^6/uL (3.50-5.40) Hemoglobin 9.1 g/dL (12.0-15.5) 8.9 g/dL (12.0-15.5) Hematocrit 28.9 % (36.0-47.0) 28.4 % (36.0-47.0) Mean Corpuscular Volume 74 fL (79-100) 74 fL (79-100) Mean Corpuscular Hemoglobin 23 pg (25-35) 23 pg (25-35) Mean Corpuscular Hemoglobin Concent 32 g/dL (31-37) 31 g/dL (31-37) Red Cell Distribution Width 19.0 % (11.5-14.5) 18.9 % (11.5-14.5) Platelet Count 140 x10^3/uL (140-400) 139 x10^3/uL (140-400) Neutrophils (%) (Auto) 79 % (31-73) 63 % (31-73) Lymphocytes (%) (Auto) 9 % (24-48) 22 % (24-48) Monocytes (%) (Auto) 12 % (0-9) 14 % (0-9) Eosinophils (%) (Auto) 0 % (0-3) 0 % (0-3) Basophils (%) (Auto) 0 % (0-3) 1 % (0-3) Neutrophils # (Auto) 7.3 x10^3uL (1.8-7.7) 3.8 x10^3uL (1.8-7.7) Lymphocytes # (Auto) 0.8 x10^3/uL (1.0-4.8) 1.3 x10^3/uL (1.0-4.8) Monocytes # (Auto) 1.1 x10^3/uL (0.0-1.1) 0.8 x10^3/uL (0.0-1.1) Eosinophils # (Auto) 0.0 x10^3/uL (0.0-0.7) 0.0 x10^3/uL (0.0-0.7) Basophils # (Auto) 0.0 x10^3/uL (0.0-0.2) 0.1 x10^3/uL (0.0-0.2) Sodium Level 139 mmol/L (136-145) 139 mmol/L (136-145) Potassium Level 3.8 mmol/L (3.5-5.1) 3.6 mmol/L (3.5-5.1) Chloride Level 103 mmol/L (98-107) 103 mmol/L (98-107) Carbon Dioxide Level 29 mmol/L (21-32) 32 mmol/L (21-32) Anion Gap 7 (6-14) 4 (6-14) Blood Urea Nitrogen 26 mg/dL (7-20) 28 mg/dL (7-20) Creatinine 0.7 mg/dL (0.6-1.0) 0.7 mg/dL (0.6-1.0) Estimated GFR (Cockcroft-Gault) 79.0 79.0 Glucose Level 96 mg/dL (70-99) 93 mg/dL (70-99) Calcium Level 8.9 mg/dL (8.5-10.1) 8.8 mg/dL (8.5-10.1) Magnesium Level 1.7 mg/dL (1.8-2.4) BUN/Creatinine Ratio 40 (6-20) Total Bilirubin 0.4 mg/dL (0.2-1.0) Aspartate Amino Transf (AST/SGOT) 17 U/L (15-37) Alanine Aminotransferase (ALT/SGPT) 9 U/L (14-59) Alkaline Phosphatase 45 U/L (46-116) PL-[id number]-[id number]-Type Natriuretic Peptide 4850 pg/mL (0-449) Total Protein 5.7 g/dL (6.4-8.2) Albumin 2.9 g/dL (3.4-5.0) Albumin/Globulin Ratio 1.0 (1.0-1.7) Microbiology Micro Microbiology 08/13/21 Urine Culture - Final, Complete Physical Exams HEENT: Neck Supple W Full Motion Chest: Symmetric Lungs: Clear to Auscultation Heart: RRR Abdomen: Soft N/T Extremities: No Edema Neurology: alert, follow commands Assessment Assessment 1. Acute on chronic CHF with possible diastolic dysfunction. improved s/p IV Lasix 2. Encephalopathy with underlying dementia 3. CAD s/p remote CABG. [facility] 4. Aortic stenosis s/p remote bioprosthetic AVR 5. Hypotension; on midodrine 6. Hyperlipidemia; statin 7. Anemia, thrombocytopenia 8. Arrhyhtmia; tele note with brief burst of probable SVT with aberrancy 9. Hypomagnesemia Recommendations Continue midodrine Continue secondary prevention Supportive care Follow up with routine adjunct professor of voice upon discharge UNIQUE HARVEY APRN Aug 16, 2021 08:17
--- NOTE | 2021-08-16 08:42 | NUR ---
PATIENT IS AWAKE IN A BED THIS AM UPON ASSESSMENT, DENIED ANY COUGH, PAIN , DIFFICULTY BREATHING. PATIENT HAD MG INFUSION ORDERED. AFTER INFUSION STARTED PATIENT C/O SOB, INFUSION OF MAGNESIUM STOPPED, O2 ASSESSED AND IS 98% ON 2L OF O2. UNIQUE SCHWARTZ NOTIFIED. PATIENT IS CURRENTLY IN A BED RESTING, [facility].
[2021-08-16] MEDS: MIDODRINE 2.5 MG TABLET PO SCH (09:00)
[2021-08-16 10:48] VITALS: BP 126/82
[2021-08-16] MEDS ORDERED: MIDO5TAB4 PO (11:25)
[2021-08-16] MEDS ORDERED: FUROSEMIDE 40 MG/4 ML VIAL IVP ONE (11:30)
--- NOTE | 2021-08-16 12:45 | NUR ---
PATIENT IS CALM AND RESTING IN A BED, O2 REASSESSED, PATIENT IS ON RA AT 95% OF O2. PATIENT STATED SHE DOES FEEL BETTER, DENIED SOB, REQUESTED TO HAVE A DRINK OF WATER , FELT LIKE HER THROAT AND MOUTH IS DRY, PATIENT GIVEN 120 CC OF WATER. PATIENT IS CURRENTLY ASLEEP IN A BED.
--- NOTE | 2021-08-16 14:13 | DS ---
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 She, however, denied any pain. She was basically extensively investigated and was found to be in acute on chronic diastolic dysfunction and she was treated with IV Lasix. She was also treated for possible UTI (urinary tract infection) with IV Rocephin; however, eventually her urine culture was negative. She does have bilateral pleural effusions, right more than left and basically was treated with IV Lasix and did well and decision was made to discharge her back to [facility]. I did start her on Lasix orally every Friday, Friday, Friday together with potassium supplement. She was hypotensive while here and therefore, we increased her midodrine to 5 mg 3 times a day, to hold if systolic pressure is more than 110 mmHg. PHYSICAL EXAMINATION: GENERAL: When I saw her today, she was resting slightly propped up in bed, in no apparent respiratory distress. She was pale, not jaundiced, cyanosed, no lymphadenopathy, no thyromegaly, no jugular venous distention. No lower limb edema. VITAL SIGNS: Her heart rate was 99, blood pressure was 126/82, temperature 97.1, respiratory rate was 20 and oxygen saturation was 99% on 1 L of oxygen. She is 95% on room air. HEAD, EYES, EARS, NOSE AND THROAT: Showed normocephalic, atraumatic. NECK: Supple. HEART: Showed normal first and second heart sounds. No gallop or murmur. CHEST: Shows central trachea, equal bilateral chest expansion, air entry, vesicular breath sounds. No crepitation or rhonchi anteriorly, posteriorly, she has dull percussion noted and absent breath sounds on the right side posteriorly, more so than left. I could not appreciate any rhonchi. ABDOMEN: Distended, soft, nontender. NEUROLOGIC: She is awake, alert, confused and has also what seemed to be aphasia. She does have flaccid left-sided hemiplegia. Her intake was 610, output was 2150. LABORATORY DATA: Her lab workup this morning showed a white cell count of 6.1, hemoglobin 8.9, hematocrit 28, MCV 74, platelet count of 139,000. Her chemistry showed a serum sodium of 139, potassium 3.6, chloride 103, bicarbonate 32, anion gap of 4, BUN 28, creatinine 0.7, estimated GFR was 79 mL per minute. Her glucose was 93, calcium was 8.8. Total bilirubin, AST, ALT, alkaline phosphatase were normal. Her beta natriuretic peptide was 4850. DISCHARGE MEDICATIONS: She was discharged back to on midodrine 5 mg 3 times a day, to hold if systolic pressure is more than 110 systolic. We also started her on furosemide 40 mg once a day on Friday, Friday and Friday. Potassium 20 mEq Friday, Friday, Friday. Should continue with all other medications. FINAL DISCHARGE DIAGNOSES: 1. Acute on chronic diastolic congestive heart failure, improving. 2. Encephalopathy with underlying dementia. Her urine cultures negative. 3. Coronary artery disease, status post remote coronary artery bypass graft surgery. 4. Aortic stenosis, status post remote bioprosthetic aortic valve replacement. 5. Hypotension, on midodrine. 6. Hyperlipidemia. 7. Anemia and thrombocytopenia. Her platelets are actually have if anything improved and now 139,000. 8. Arrhythmias. NUNU/MATA DR: NUNU/bernie TID: [id number]
--- NOTE | 2021-08-16 14:44 | NUR ---
PATIENT IS DISCHARGED BACK TO [facility], REPORT GIVEN TO STAFF NURSE. PATIENT LEFT R 124 VIA W/C ACCOMP BY STAFF, DISCHARGED PAPERWORK GIVEN TO [facility] STAFF.
[2021-08-16 18:32] LABS: CHOLESTEROL/HDL RATIO 4.6; THYROID STIM HORMONE (TSH) 2.188 uIU/mL (0.358-3.740)
== END 2021-08-16 14:45 | DRG 291 ==
LOC: ER 14:52 → ER HOLD 18:10 → 1 SOUTH 18:30
PROVIDERS: ADMIT Hospitalist; ATTEND Hospitalist
DX: I11.0 Hypertensive heart disease with heart failure (principal); I50.33 Acute on chronic diastolic (congestive) heart failure; B18.9 Chronic viral hepatitis, unspecified; G93.40 Encephalopathy, unspecified; I47.1 Supraventricular tachycardia; I69.354 Hemiplegia and hemiparesis following cerebral infarction affecting left non-dominant side; N30.00 Acute cystitis without hematuria; I42.9 Cardiomyopathy, unspecified; D64.9 Anemia, unspecified; D69.6 Thrombocytopenia, unspecified; E78.5 Hyperlipidemia, unspecified; E83.42 Hypomagnesemia; F03.90 Unspecified dementia, unspecified severity, without behavioral disturbance, psychotic disturbance, mood disturbance, and anxiety; I08.0 Rheumatic disorders of both mitral and aortic valves; I25.10 Atherosclerotic heart disease of native coronary artery without angina pectoris; I48.91 Unspecified atrial fibrillation; Z66 Do not resuscitate; Z79.01 Long term (current) use of anticoagulants; Z95.1 Presence of aortocoronary bypass graft; Z95.3 Presence of xenogenic heart valve; F32.A Depression, unspecified; F41.9 Anxiety disorder, unspecified; K21.9 Gastro-esophageal reflux disease without esophagitis; I95.9 Hypotension, unspecified; Z88.0 Allergy status to penicillin; Z88.2 Allergy status to sulfonamides; Z88.8 Allergy status to other drugs, medicaments and biological substances
CPT/HCPCS: 36415; 70450; 71045; 80048; 80053; 80061; 81001; 82140; 82553; 83605; 83735; 83880; 84443; 84484; 85025; 87086; 87428; 93005; 93971; 94640; 96365; 96375; J0696; J1100; J1940; J2405; J3475; P9612; U0003; 97530; 99285-25